=== PATIENT | female | born 1960 | race Hispanic/Latino ===

== ENCOUNTER 2018-11-25 21:02 | Inpatient (IN) | payer SELFPAY ==
[2018-11-25 21:35] LABS: #Basophils 0.1 thou/uL (0.0-0.2); #Eosinphils 0.1 thou/uL (0.0-0.7); #Lymphocytes 2.1 thou/uL (1.20-3.40); #Monocytes 0.7 thou/uL (0.11-0.59); #Neutrophils 4.7 thou/uL (1.40-6.50); %Basophils 0.9 % (0.0-1.0); %Eosinophils 1.5 % (0.0-10.0); %Monocytes 9.5 % (0.0-10.0); %Neutrophils 61.1 % (42.0-75.0); Hemoglobin 16.1 g/dL (12.0-16.0); Mean Corpuscular Volume 91.4 fL (78.0-98.0); Mean Platelet Volume 10.1 fL (7.4-10.4); Platelet Count 158 thou/uL (130-400); RBC Distribution Width 11.5 % (11.5-14.5); Red Blood Cell (RBC) Count 5.05 mill/uL (4.20-5.40); White Blood Cell (WBC) Count 7.7 thou/uL (4.8-10.8)
[2018-11-25] MEDS ORDERED: Dexamethasone 10 MG/ML VIAL ONE (21:57)
[2018-11-25] MEDS ORDERED: Magnesium 2 GM/50 ML BAG (IN WATER) ONE (21:57)
[2018-11-25 22:00] LABS: ALT (SGPT) 51 U/L (8-55); AST (SGOT) 36 U/L (5-34); Albumin 4.5 g/dL (3.5-5.0); Alkaline Phosphatase 117 U/L (40-110); Anion Gap 14 mmol/L (10-20); BUN (Urea Nitrogen) 10 mg/dL (9.8-20.1); Bilirubin, Total 0.5 mg/dL (0.2-1.2); CK (CPK) 62 U/L (29-168); Calc. Creatinine Clearance 0 mL/min (70-130); Calcium 9.5 mg/dL (7.8-10.44); Carbon Dioxide 23 mmol/L (22-29); Chloride 101 mmol/L (98-107); Estimated GFR-MDRD 66; Globulin 3.9 g/dL (2.4-3.5); Glucose 286 mg/dL (70-105); Lipase 46 U/L (8-78); Potassium 3.7 mmol/L (3.5-5.1); Protein, Total 8.4 g/dL (6.0-8.3); Sodium 134 mmol/L (136-145)
--- NOTE | 2018-11-25 22:00 | RAD ---
RADIOGRAPH CHEST 1 VIEW: DATE: 11/25/2018 HISTORY: 58-year-old female with fever FINDINGS: There are no airspace densities, pulmonary edema, pneumothorax, or cardiomegaly. The lateral costophr enic angles are sharp. IMPRESSION: No acute cardiopulmonary findings.
[2018-11-25 22:40] LABS: Bilirubin Negative (Negative); Blood, Urine Negative (Negative); Clarity Clear (Clear); Glucose, Urine (Dipstick) Greater than 1000 mg/dL (Negative); Leukocyte Negative Leu/uL (Negative); Nitrite Negative (Negative); Protein, Urine (Dipstick) Negative (Neg-Trace); Urobilinogen Normal mg/dL (Less than 2)
[2018-11-26] MEDS ORDERED: Acetaminophen 325 MG TAB PO PRN (00:21)
[2018-11-26] MEDS ORDERED: Dextrose 5% in Water 1,000 ML IV PRN (00:26)
[2018-11-26] MEDS ORDERED: Dextrose 50% Abboject 50 ML SYRINGE SLOW IVP PRN (00:26)
--- NOTE | 2018-11-26 03:00 | HP ---
CHIEF COMPLAINT: Cough, shortness of breath. HISTORY OF PRESENT ILLNESS: This patient is a 58-year-old female from [place] here visiting. She has a history of asthma. She has an inhaler that she uses and a nebulizer machine when she feels like that is not adequate. She typically requires the inhaler on a daily basis. For the last 4 days, the patient has had increasing shortness of breath and wheezing. She has had some generalized malaise, fever, and a cough that is productive of whitish phlegm. Today in the emergency department, she had an episode of coughing productive of a slight blood-tinged sputum. REVIEW OF SYSTEMS: She has had the above-mentioned fever and shortness of breath. Otherwise, she has had normal bowel and bladder habits. She has had decreased appetite today, but her daughter in-law who is helping with the history indicates that they were in court because the patient's son was in [facility] and she thinks it may have been some anxiety related to that, that caused her to have poor appetite. All other systems reviewed. All pertinent positives and negatives noted in the history of present illness. PAST MEDICAL HISTORY: Notable for asthma, diabetes, hypertension. PAST SURGICAL HISTORY: . FAMILY HISTORY: Mother had hypertension. SOCIAL HISTORY: The patient is a nonsmoker, nondrinker, nondrug user. She is technically , but . She is full code. Her daughter in-law, Maryann Richardson would be her surrogate decision maker should that become necessary. PHYSICAL EXAMINATION: VITAL SIGNS: Blood pressure is 153/97, pulse 104, respirations 16, T-max in the ER is 101.8, O2 saturations 93% on room air. GENERAL APPEARANCE: Age-appropriate female, breathing on room air comfortably. She is in no distress. She is not currently significantly tachypneic. She is awake and alert. Turkish-speaking only, pleasant, cooperative. Interview was assisted by the patient's daughter in-law. HEENT: JARET. No OP lesions. NECK: Supple and symmetric without lymphadenopathy, JVD, or bruit. HEART: Regular rate and rhythm without murmurs, gallops, or rubs. Slightly tachypneic. LUNGS: Have modest scattered expiratory wheezes, slightly more on the right than the left. No rales. Fair air exchange. ABDOMEN: Soft, nontender, and nondistended. Positive bowel sounds. No masses. No organomegaly. EXTREMITIES: No cyanosis, clubbing, or edema. NEURO: The patient has normal cognition and Speech. She moves all extremities spontaneously. No focal deficits. PSYCH: Normal affect and behavior. LABORATORY DATA: White count 7.7, hemoglobin 16.1, platelets 158. Sodium 134, potassium 3.7, chloride 101, CO2 is 23, BUN 10, creatinine 0.88, glucose 286, lactic acid 1.9, calcium 9.5, AST is 36, and alkaline phosphatase 117. Other LFTs are normal. Troponin 0.01. BNP 10. Albumin 4.5. Urinalysis shows greater than 1000 glucose, otherwise negative. Strep screen is negative. Flu screen is negative. Chest x-ray is negative. IMPRESSION AND PLAN: 1. Systemic inflammatory response syndrome with fever and tachycardia. It is unclear if the tachycardia is related to systemic inflammatory response syndrome or underlying infection or if it is simply related to stimulant effect of the nebulizers that she has been using. She does not appear to be significantly distressed at the moment. In the emergency department, she has received magnesium, DuoNeb, Decadron, and Levaquin. We will continue with the nebulizer treatments and p.r.n. oxygen. There is no evidence of an active pneumonia at this time, but I do suspect she has more likely a bronchitis. 2. Bronchitis. She received a dose of Levaquin in the emergency department. I doubt she will need to continue on IV antibiotics. We will reassess her in the morning and determine if she needs IV or if she can have some p.o. antibiotics if needed depending on her exam and her clinical course. She may need a followup chest x-ray to just rule out an underlying pneumonia. 3. Diabetes mellitus. Given that she received 10 mg of Decadron in the emergency department, she is likely to have significant hyperglycemia. We will continue with the metformin, give her a sliding scale as well. 4. Underlying asthma. Continue with p.r.n. nebulizer treatments with albuterol as needed. 5. History of hypertension. We will continue with her usual home medication with the enalapril 10 mg daily. Job ID: [id number]
[2018-11-26 03:59] LABS: #Monocytes 0.2 thou/uL (0.11-0.59); %Basophils 0.3 % (0.0-1.0); %Eosinophils 0.1 % (0.0-10.0); %Lymphocytes 11.8 % (21.0-51.0); %Monocytes 2.4 % (0.0-10.0); %Neutrophils 85.4 % (42.0-75.0); Hemoglobin 15.2 g/dL (12.0-16.0); Mean Corpuscular HGB CONC 34.4 g/dL (32.0-36.0); Mean Corpuscular Hemoglobin 31.7 pg (27.0-31.0); Mean Corpuscular Volume 92.1 fL (78.0-98.0); Platelet Count 156 thou/uL (130-400); RBC Distribution Width 11.4 % (11.5-14.5); Red Blood Cell (RBC) Count 4.81 mill/uL (4.20-5.40); White Blood Cell (WBC) Count 8.2 thou/uL (4.8-10.8)
[2018-11-26] MEDS: Sodium Chloride 0.9% 1,000 ML IV SCH ×3 (05:23→19:46)
[2018-11-26] MEDS: Albuterol Sulfate 1.25 MG/3 ML NEB NEB PRN ×2 (05:35→13:46)
[2018-11-26] MEDS ORDERED: metFORMIN 500 MG TAB PO SCH (08:00)
[2018-11-26] MEDS: Lisinopril 10 MG TAB PO SCH (09:38)
[2018-11-26] MEDS: HumaLOG 300 UNITS/3 ML VIAL SC PRN ×3 (13:20→21:13)
--- NOTE | 2018-11-26 14:02 | PDOC.HOSPP ---
- Subjective Encounter Date: 11/26/18 Encounter Time: 14:00 Subjective: sob is better, throat still hurts, no fever is ambulating in room - Objective Vital Signs & Weight: Vital Signs (12 hours) Temp Pulse Resp BP Pulse Ox 11/26/18 13:46 82 16 97 11/26/18 11:29 98.3 F 83 20 132/71 93 L 11/26/18 08:00 94 L 11/26/18 07:54 98.0 F 85 16 129/74 94 L 11/26/18 05:51 98.8 F 94 16 139/77 93 L Weight Weight 157 lb 12.8 oz Result Diagrams: 11/26/18 03:45 11/25/18 21:20 Additional Labs: Accuchecks 11/26/18 11/26/18 13:17 06:36 POC Glucose 356 H 259 H Hospitalist ROS - Medication Medications: Active Medications Generic Name Dose Route Start Last Admin Trade Name Freq PRN Reason Stop Dose Admin Sodium Chloride 1,000 mls @ 75 mls/hr 11/26/18 01:00 11/26/18 05:23 Normal Saline 0.9% IV 1,000 mls .[id number] LUIS Administration Insulin Human Lispro 0 units 11/26/18 00:26 11/26/18 13:20 Humalog SC 6 unit .MILD SLIDING SCALE PRN Administration Mild Correctional Scale Lisinopril 10 mg 11/26/18 09:00 11/26/18 09:38 Zestril PO 10 mg DAILY LUIS Administration Metformin HCl 500 mg 11/26/18 08:00 11/26/18 09:39 Glucophage PO 500 mg BID-WM LUIS Administration Sodium Chloride 10 ml 11/26/18 09:00 11/26/18 09:40 Flush - Normal Saline IVF Not Given Q12HR LUIS - Exam General Appearance: awake alert Eye: PERRL, anicteric sclera ENT: moist mucosa Neck: supple, no JVD Heart: RRR, no murmur Respiratory: no wheezes, no rales, rhonchi Gastrointestinal: soft, non-tender, non-distended, normal bowel sounds Extremities: no cyanosis, no edema Neurological: cranial nerve grossly intact, no focal deficits Psychiatric: normal affect, A&O x 3 Hosp A/P (1) Asthma exacerbation Code(s): J45.901 - UNSPECIFIED ASTHMA WITH (ACUTE) EXACERBATION Status: Acute Qualifiers: Asthma severity: moderate Asthma persistence: unspecified Qualified Code( s): J45.901 - Unspecified asthma with (acute) exacerbation (2) URI (upper respiratory infection) Code(s): J06.9 - ACUTE UPPER RESPIRATORY INFECTION, UNSPECIFIED Status: Acute Qualifiers: URI type: unspecified viral URI Qualified Code(s): J06.9 - Acute upper respiratory infection, unspecified (3) DM type 2 (diabetes mellitus, type 2) Status: Chronic Qualifiers: Diabetes mellitus intermediate insulin use: without intermediate use Diabetes mellitus complication status: with hyperglycemia Qualified Code(s): E11.65 - Type 2 diabetes mellitus with hyperglycemia - Plan on alb neb, levaquin, prednisone low dose metformin, add glipizide hemostable gentle iv hydration dc plan in am
[2018-11-26] MEDS: Albuterol Sulfate 1.25 MG/3 ML NEB NEB SCH ×2 (14:28→20:59)
[2018-11-26] MEDS ORDERED: predniSONE 5 MG TAB PO SCH (14:30)
[2018-11-26] MEDS: metFORMIN 500 MG TAB PO SCH ×2 (14:31→21:13)
[2018-11-26] MEDS: glipiZIDE 5 MG TAB PO SCH (16:34)
[2018-11-26] MEDS ORDERED: Albuterol Sulfate 1.25 MG/3 ML NEB ONE (20:57)
[2018-11-27] MEDS: Sodium Chloride 0.9% 1,000 ML IV SCH (05:39)
[2018-11-27] MEDS ORDERED: predniSONE 5 MG TAB PO SCH (08:00)
[2018-11-27] MEDS: metFORMIN 500 MG TAB PO SCH (09:12)
[2018-11-27] MEDS: glipiZIDE 5 MG TAB PO SCH (09:12)
[2018-11-27] MEDS: Lisinopril 10 MG TAB PO SCH (09:13)
[2018-11-27 12:23] VITALS: BP 143/76; TEMP 98.3
[2018-11-27] MEDS: HumaLOG 300 UNITS/3 ML VIAL SC PRN (13:05)
--- NOTE | 2018-11-28 05:14 | PQF ---
[employer] Clutch Assembler Crystal Reports Winform Viewer JUAN DIEGO ROLDAN VINAYA KUMAR MD [id number] CLINICAL DOCUMENTATION CLARIFICATION FORM: POST DISCHARGE Addendum to original discharge summary date: ____ Late entry note date: __ DATE: 11/28/18 ATTN: David Garcia Please exercise your independent, professional judgment in responding to the clarification form. Clinical indicators are provided on the bottom of this form for your review Can you please further specify the diagnosis based on the clinical indicators below? Please check appropriate box(s): [ x ] SIRS due to Non-infectious process [ ] SIRS with Sepsis [ ] SIRS without Sepsis [ ] Other diagnosis please specify [ ] Unable to determine I n addition, please specify: Present on Admission (POA): [ x] Yes [ ] No [ ] Unable to determine For continuity of documentation, please document condition throughout progress notes and discharge summary. Thank You. CLINICAL INDICATORS - SIGNS / SYMPTOMS / LABS H and P pg.1 She had some generalized malaise, fever, and a cough H and P pg.1- Vital signs: BP 153/97, pulse, 104, respiration 16, Tmax in the ER is 101.8 H and P pg.2 Systemic inflammatory response syndrome with fever and tachycardia H and P pg.2 - It is unclear if the tachycardia is related to systemic inflammatory response syndrome or underlying infection or if it is simply related to stimulant effect of the nebulizer RISK FACTORS Asthma- H and P pg.1 Bronchitis- H and P pg.2 Upper respiratory tract infection- Hospitalist PN 11/26 pg.3 TREATMENT IV Fluids- MAY 04 Chest X-ray 11/25 Levofloxacin 750mg IV- MAY 04 (This form is maintained as a part of the permanent medical record) 2014 [employer]. All Rights Reserved Tobi [email or web address] [not provided] ROBY
--- NOTE | 2018-11-28 05:18 | PQF ---
[employer] Party Plan Demonstrator Crystal Reports Winform Viewer JUAN DIEGO ROLDAN VINAYA KUMAR MD [id number] CLINICAL DOCUMENTATION CLARIFICATION FORM: POST DISCHARGE Addendum to original discharge summary date: ____ Late entry note date: __ DATE: 11/28/18 ATTN:David Garcia Please exercise your independent, professional judgment in responding to the clarification form. Clinical indicators are provided on the bottom of this form for your review Can you please further specify if Pneumonia is ruled in or ruled out? Pneumonia [ ] Ruled in diagnosis [ ] Continue to treat [ ] Resolved [ x ] Ruled out diagnosis [ ] Cannot rule out diagnosis [ ] Other diagnosis please specify [ ] Unable to determine In addition, please specify: Present on Admission (POA): [ ] Yes [ ] No [ ] Unable to determine For continuity of documentation, please document condition throughout progress notes and discharge summary. Thank You. CLINICAL INDICATORS - SIGNS / SYMPTOMS / LABS ED Notes 11/25 Pneumonia ED Notes 11/25 "presents for evaluation of SOB with productive cough and fever" H and P pg.3 "follow up chest Xray to just rule out an underlying pneumonia" H and P pg.1 episode of coughing productive of a slight blood-tinged sputum" H and P pg.1 She had some generalized malaise, fever, and a cough H and P pg.1- Vital signs: BP 153/97, pulse, 104, respiration 16, Tmax in the ER is 101.8 H and P pg.2 Systemic inflammatory response syndrome with fever and tachycardia RISK FACTORS Asthma- H and P pg.1 Bronchitis- H and P pg.2 Upper respiratory tract infection- Hospitalist PN 11/26 pg.3 SIRS- H and P pg.2 TREATMENTS IV Fluids- MAY 04 Chest X-ray 11/25 Levofloxacin 750mg IV- MAY 04 (This form is maintained as a part of the permanent medical record) 2014 [employer] All Rights Reserved [email or web address] [not provided] MTDD
--- NOTE | 2018-11-28 05:21 | PQF ---
SAP Manager [place] Crystal Reports Winform JUAN DIEGO Rodriguez VINAYA KUMAR MD [id number] CLINICAL DOCUMENTATION CLARIFICATION FORM: POST DISCHARGE Addendum to original discharge summary date: ____ Late entry note date: __ DATE: 11/28/18 ATTN: David Garcia Please exercise your independent, professional judgment in responding to the clarification form. Clinical indicators are provided on the bottom of this form for your review Can you please further specify the specificity of Asthma exacerbation based on the clinical indicators below? Please check appropriate box(s): [ x] Asthma with Exacerbation [ ] Asthma without Exacerbation [ ] Mild intermittent [ ] Mild persistent [ ] Moderate persistent [ ] Severe Persistent [ ] Status Asthmaticus [ ] Acute lower respiratory infection [ ] Other diagnosis please specify [ ] Unable to determine In addition, please specify: Present on Admission (POA): [ x] Yes [ ] No [ ] Unable to determine For continuity of documentation, please document condition throughout progress notes and discharge summary. Thank You. CLINICAL INDICATORS - SIGNS / SYMPTOMS/ LABS PN 11/26 Asthma Exacerbation ED Notes 11/25 "presents for evaluation of SOB with productive cough and fever" H and P pg.1 episode of coughing productive of a slight blood-tinged sputum" H and P pg.1 She had some generalized malaise, fever, and a cough H and P pg.1 increasing SOB and wheezing" H and P pg.2 "LUNG:scattered expiratory wheezes" RISK FACTORS Bronchitis- H and P pg.2 Upper respiratory tract infection- Hospitalist PN 11/26 pg.3 SIRS- H and P pg.2 TREATMENT IV Fluids- MAY 04 Chest X-ray 11/25 Levofloxacin 750mg IV- MAY 04 Albuterol Sulfate 1.25mg Neb - MAY 04 Dexamethasone 10mg IV - MAY 04 Prednisone 5mg Oral - MAY 04 (This form is maintained as a part of the permanent medical record) 2014 [employer]. All Rights Reserved [email or web address] [not provided] MTDD
--- NOTE | 2018-11-28 07:25 | DIS ---
DATE OF ADMISSION: 11/25/2018 DATE OF DISCHARGE: 11/27/2018 DISCHARGE DISPOSITION: To home. PRIMARY DISCHARGE DIAGNOSES: 1. Acute asthma exacerbation, resolved. 2. Viral upper respiratory infection. 3. Diabetes mellitus type 2. 4. Hypertension. PROCEDURES DONE DURING HOSPITALIZATION: Chest x-ray done on the day of admission showed no acute cardiopulmonary findings. H and H 15 and 44, platelet count 156 , with 85% neutrophils, and white count was 8. BUN 10, creatinine 0.8. Troponin x1 negative. BNP less than 10. Albumin 4.5. UA showed more than 1000 mg/dL of glucose. DISCHARGE MEDICATIONS: 1. Prednisone 5 mg p.o. daily for another 3 days. 2. Metformin 500 mg p.o. 3 times daily. 3. Glipizide 5 mg p.o. daily. 4. Lisinopril 10 mg p.o. daily. 5. Albuterol inhaler q.6 hourly p.r.n. ALLERGIES: NO KNOWN DRUG ALLERGIES. DISCHARGE PLAN: The patient to follow up with primary care physician in 1 week. She is actually from [place] and needs to go to either [facility] or [facility] of her choice in 1 week if she plans to remain in the country. BRIEF COURSE DURING HOSPITALIZATION: The patient initially came in with complaints of cough and shortness of breath. She has known history of asthma. She was visiting from [place]. She was found to be in asthma exacerbation with likely upper respiratory viral infection predisposing for it. She was placed on steroids, bronchodilators. Influenza A and B antigens were negative. Streptococcal throat screen was negative. Blood cultures x2, no growth. She remained hemodynamically stable during her stay here. This morning, the patient is ambulating and eating well. She had a restful sleep as well. She needs to continue prednisone for another 3 days. Her diabetes was uncontrolled and her metformin has been increased to 3 times daily with the addition of glipizide. Please note, I have seen and examined the patient on the day of discharge. Job ID: [id number] MTDD
--- NOTE | 2018-11-28 15:22 | EKG ---
Test Reason : Blood Pressure : / mmHG Vent. Rate : 105 BPM Atrial Rate : 105 BPM P-R Int : 164 ms QRS Dur : 086 ms QT Int : 364 ms P-R-T Axes : 061 -38 003 degrees QTc Int : 481 ms Sinus tachycardia Left axis deviation Abnormal ECG Confirmed by CRISTOBAL TEMPLE, ROLAND ([id number]), news video editor CECILIO ROBLES ([id number]) on 11/28/2018 3:22:14 PM Referred By: Confirmed By:ROLAND JAIN MD
== END 2018-11-27 14:04 | disposition home or self-care (01) | DRG 202 ==
LOC: ERS 21:02 → ERHOLD 22:20 → 3SE 11-26 05:47
PROVIDERS: ADMIT Internal Medicine; ATTEND Internal Medicine
DX: J45.901 Unspecified asthma with (acute) exacerbation (principal); R65.10 Systemic inflammatory response syndrome (SIRS) of non-infectious origin without acute organ dysfunction; I10 Essential (primary) hypertension; J06.9 Acute upper respiratory infection, unspecified; E11.65 Type 2 diabetes mellitus with hyperglycemia; Z79.84 Long term (current) use of oral hypoglycemic drugs; Z79.899 Other long term (current) drug therapy; Z79.51 Long term (current) use of inhaled steroids
CPT/HCPCS: 36415; 36416; 71045; 80053; 81003; 82550; 83605; 83690; 83880; 84484; 85025; 87040; 87081; 87430; 87804; 93005; 94640; 94760; 96361; 96365; 96366; 96375; J1100; J1956; J3475; J7512; J7620